=== PATIENT | male | born 2000 | race Caucasian/White ===

== ENCOUNTER 2018-08-06 20:17 | Emergency (ER) | payer MEDICAID, MEDICARE ==
[~2018-08-06] VITALS: Ht 160 cm; Wt 94.0 kg
[~2018-08-06 20:17] MED LIST: DEXA2TAB
[2018-08-06] MEDS ORDERED: KETOROLAC 60MG/2ML VIAL IM ONE (22:45)
[2018-08-07 02:38] VITALS: BP 107/67
== END 2018-08-07 02:50 | disposition home or self-care (01) ==
LOC: ER 20:17
DX: M54.5 Low back pain (principal)
CPT/HCPCS: 72131; 96372; 99284; J1885